=== PATIENT | female | born 1970 | race African-American/Black ===

== ENCOUNTER 2021-11-26 14:37 | Emergency (ER) | payer BC, SELFPAY ==
[2021-11-26 14:49] VITALS: BP 155/96; PULSE 80; RESP 20; TEMP 36.5; O2SAT 98
--- NOTE | 2021-11-26 15:25 | ED.ANIMALBIT ---
HPI - Animal Bite General Chief Complaint: Animal Bite Stated Complaint: rabies shot - bat exposure Time Seen by Provider: 11/26/21 15:09 History of Present Illness HPI narrative: 51-year-old female presents the emergency room after waking up on Friday morning with a bat in her room. Denies any known injury or bite. Patient is requesting a rabies vaccination and to begin immunoglobulin therapy. Related Data Allergies Allergy/AdvReac Type Severity Reaction Status Date / Time Penicillins Allergy Swelling Verified 11/26/21 15:28 Review of Systems Review of Systems: CONSTITUTIONAL: Denies fever, chills, or sweats. EYES: Denies visual changes, redness, or discharge. ENT: Denies rhinorrhea, congestion, sore throat, or otalgia. CARDIOVASCULAR: Denies chest pain, palpitations, or edema. RESPIRATORY: Denies cough or dyspnea. GASTROINTESTINAL: Denies abdominal pain, nausea, vomiting, or diarrhea. GENITOURINARY: Denies dysuria or hematuria. SKIN: Denies rash or itching. MUSCULOSKELETAL: Denies back pain, joint pain, or myalgia. NEUROLOGIC: Denies headache, numbness, dizziness, or weakness. PSYCHIATRIC: Denies anxiety or depression. Exam Narrative: GENERAL: Well-appearing, well-nourished, no physical limitations, and in no acute distress. HEAD: Normocephalic, atraumatic. EYES: Conjunctivae normal, PERRLA and EOMI. NECK: Supple. No adenopathy or masses. CHEST: Clear to auscultation. No respiratory distress. No wheezes rales or rhonchi. No tenderness. HEART: Regular rate and rhythm. No murmur heard. Normal peripheral pulses. SKIN: Warm, dry, no rash. No noted wounds NEURO: No focal deficits. Alert and oriented x3. MAEW. CN's II-XI intact bilaterally, normal gait PSYCH: Cooperative. Normal mood and affect. Course Vital Signs Vital signs: Vital Signs Temperature 36.5 C 11/26/21 14:49 Pulse Rate 80 11/26/21 14:49 Respiratory Rate 20 11/26/21 14:49 Blood Pressure 155/96 H 11/26/21 14:49 Pulse Oximetry 98 11/26/21 14:49 Oxygen Delivery Room Air 11/26/21 14:49 Temperature 36.5 C 11/26/21 14:49 Pulse Rate 80 11/26/21 14:49 Respiratory Rate 20 11/26/21 14:49 Blood Pressure 155/96 H 11/26/21 14:49 Pulse Oximetry 98 11/26/21 14:49 Oxygen Delivery Room Air 11/26/21 14:49 Discharge Plan Discharge Clinical Impression: Rabies contact Patient Disposition: Home, Self-Care Condition: Stable Instructions: Antibiotic Form, Rabies Vaccine (By injection), Rabies Immune Globulin (By injection), Rabies (ED) Additional Instructions: Follow the instructions on the prescription pad. Follow-up/Referrals: PHYSICIAN NOT ON STAFF,NONSTAFF [Primary Care Provider] - Time of Disposition: 15:44
[2021-11-26] MEDS: RABIES VACCINE (RABAVERT) 2.5 UNITS VIAL IM (16:24)
[2021-11-26] MEDS: RABIES IMMUNE GLOBULIN/PF 1,500 UNITS/5 ML VIAL 2100 UNITS IM (16:30)
--- NOTE | 2021-11-26 16:40 | PC.NURSE ---
Immune globulin given in different locations. 3mL given in each thigh and 1mL given in right deltoid.
[2021-11-26 17:00] VITALS: BP 153/86; PULSE 88; RESP 18; O2SAT 99
== END 2021-11-26 17:01 | disposition home or self-care (01) ==
LOC: ANHED 16:36
PROVIDERS: Emergency Provider Nurse Practitioner Family
DX: Z20.3 Contact with and (suspected) exposure to rabies (principal)
CPT/HCPCS: 90471; 90675; 96372; 99283; 90375

== ENCOUNTER 2021-12-10 08:08 | Outpatient (RCR) | payer BC, SELFPAY | END 2022-02-27 23:59 | disposition home or self-care (01) | LOC: ANHVASCINF 08:08 | PROVIDERS: Visit Provider Nurse Practitioner Family | DX: Z20.3 Contact with and (suspected) exposure to rabies (principal) | CPT/HCPCS: 90471; 90675 ==